=== PATIENT | male | born 1955 | race Caucasian/White ===

== ENCOUNTER 2019-06-24 06:00 | Outpatient (RCR) | payer OTHER, SELFPAY | END 2019-07-06 23:59 | disposition home or self-care (01) | LOC: GPT 06:00 | PROVIDERS: Family Provider Internal Medicine; Referring Provider Orthopaedic Surgery; Visit Provider Orthopaedic Surgery | DX: Z47.89 Encounter for other orthopedic aftercare (principal); Z98.890 Other specified postprocedural states | CPT/HCPCS: 97032; 97110; 97140; 97162; G0283 ==

== ENCOUNTER 2019-07-07 06:00 | Outpatient (RCR) | payer OTHER, SELFPAY | END 2019-08-06 23:59 | disposition home or self-care (01) | LOC: GPT 06:00 | PROVIDERS: Family Provider Internal Medicine; Referring Provider Orthopaedic Surgery; Visit Provider Orthopaedic Surgery | DX: Z47.89 Encounter for other orthopedic aftercare (principal) | CPT/HCPCS: 97110; 97140; 97164; 97530; G0283 ==

== ENCOUNTER 2019-08-07 06:00 | Outpatient (RCR) | payer OTHER, SELFPAY | END 2019-09-05 23:59 | disposition home or self-care (01) | LOC: GPT 06:00 | PROVIDERS: Family Provider Internal Medicine; Referring Provider Orthopaedic Surgery; Visit Provider Orthopaedic Surgery | DX: Z47.89 Encounter for other orthopedic aftercare (principal) | CPT/HCPCS: 97032; 97110; 97140; 97164; 97530; G0283 ==

== ENCOUNTER 2019-09-06 06:00 | Outpatient (RCR) | payer OTHER, SELFPAY | END 2019-10-06 23:59 | disposition home or self-care (01) | LOC: GPT 06:00 | PROVIDERS: Family Provider Internal Medicine; Referring Provider Orthopaedic Surgery; Visit Provider Orthopaedic Surgery | DX: Z47.89 Encounter for other orthopedic aftercare (principal) | CPT/HCPCS: 97110; 97140; 97164; 97530; G0283 ==

== ENCOUNTER 2019-10-07 06:00 | Outpatient (RCR) | payer OTHER, SELFPAY | END 2019-11-05 23:59 | disposition home or self-care (01) | LOC: GPT 06:00 | PROVIDERS: Family Provider Internal Medicine; Referring Provider Orthopaedic Surgery; Visit Provider Orthopaedic Surgery | DX: Z47.89 Encounter for other orthopedic aftercare (principal) | CPT/HCPCS: 97110; G0283 ==